=== PATIENT | female | born 1975 | race Two or more races ===

== ENCOUNTER 2021-11-06 09:05 | Outpatient (CLI) | payer OTHER | END 2021-11-06 23:59 | disposition home or self-care (01) | LOC: WOU 09:05 | PROVIDERS: ATTEND Specialist | DX: T21.12XA Burn of first degree of abdominal wall, initial encounter (principal); T31.0 Burns involving less than 10% of body surface; X12.XXXA Contact with other hot fluids, initial encounter; Y92.89 Other specified places as the place of occurrence of the external cause | CPT/HCPCS: 99204; A6209; G0463 ==

== ENCOUNTER 2021-11-13 09:10 | Outpatient (CLI) | payer OTHER | END 2021-11-13 23:59 | disposition home or self-care (01) | LOC: WOU 09:10 | PROVIDERS: ATTEND Specialist | DX: T22.111A Burn of first degree of right forearm, initial encounter (principal); T22.10XA Burn of first degree of shoulder and upper limb, except wrist and hand, unspecified site, initial encounter; T31.0 Burns involving less than 10% of body surface; X08.8XXA Exposure to other specified smoke, fire and flames, initial encounter; Y92.89 Other specified places as the place of occurrence of the external cause | CPT/HCPCS: G0463 ==